=== PATIENT | male | born 1990 | race Caucasian/White ===

== ENCOUNTER 2016-07-01 09:17 | Emergency (ER) | payer SELFPAY ==
[~2016-07-01] VITALS: Ht 170.2 cm; Wt 77.1 kg
[2016-07-01 09:20] VITALS: BP 106/76
[2016-07-01] MEDS ORDERED: PENICILLIN G BENZATHINE LA 1,200,000 UNIT/2 ML DISP.SYRIN. IM ONE (09:45)
--- NOTE | 2016-07-01 09:47 | PHYS DOC ---
Past Medical History Past Medical History: No Pertinent History Past Surgical History: No Surgical History Alcohol Use: Rarely Drug Use: None, Methamphetamine Adult General Chief Complaint Chief Complaint: SORE THROAT HPI HPI Patient is a 25 year old male presents emergency department stating that he has had a sore throat with fever chills for the last 3 days. He states his been taken Tylenol and ibuprofen for the fever and chills. He states that he has white blisters on the back of his throat. He denies any nausea vomiting or cough. Review of Systems Review of Systems Constitutional: fever Eyes: Denies change in visual acuity, redness, or eye pain [] HENT: Denies nasal congestion C/o sore throat [] Respiratory: Denies cough or shortness of breath [] Cardiovascular: No additional information not addressed in HPI [] GI: Denies abdominal pain, nausea, vomiting, bloody stools or diarrhea [] : Denies dysuria or hematuria [] Musculoskeletal: Denies back pain or joint pain [] Integument: Denies rash or skin lesions [] Neurologic: Denies headache, focal weakness or sensory changes [] Current Medications Current Medications Current Medications Medications (Trade) Dose Ordered Sig/[place] Start Time Stop Time Status Last Admin Dose Admin Penicillin G Benzathine (Bicillin L-A) 1,200,000 unit 1X ONCE 07/01/16 09:45 07/01/16 09:46 Allergies Allergies Allergies Coded Allergies Type Severity Reaction Last Updated Verified No Known Drug Allergies 01/20/16 No Physical Exam Physical Exam Constitutional: Well developed, well nourished, no acute distress, non-toxic appearance. [] HENT: Normocephalic, atraumatic, bilateral external ears normal, oropharynx moist, no oral exudates, nose normal. Bilateral tympanic membranes appear to be normal. Throat with erythematous with white exudate noted uvula with no deviation. Patient with tenderness on upper gums. Eyes: PERRLA, EOMI, conjunctiva normal, no discharge. [] Neck: Normal range of motion, no tenderness, supple, no stridor. [] Cardiovascular:Heart rate regular rhythm, no murmur [] Lungs & Thorax: Bilateral breath sounds clear to auscultation [] Skin: Warm, dry, no erythema, no rash. [] Back: No tenderness Extremities: No tenderness, no cyanosis, no clubbing, ROM intact, no edema. [] Neurologic: Alert and oriented X 3, normal motor function, normal sensory function, no focal deficits noted. [] Psychologic: Affect normal, judgement normal, mood normal. [] Current Patient Data Vital Signs Vital Signs Date Time Temp Pulse Resp B/P Pulse Ox O2 Delivery O2 Flow Rate FiO2 07/01/16 09:20 98.9 91 18 100 Room Air 98.9 EKG EKG [] Radiology/Procedures Radiology/Procedures [] Course & Med Decision Making Course & Med Decision Making Pertinent Labs and Imaging studies reviewed. (See chart for details) Rapid strep was positive. Patient's requesting a Bicillin injection. He'll be discharged home in stable condition with recommendations for Tylenol and ibuprofen for fever chills generalized body aches and discomfort. Patient was also recommended to use off drops, throat lozenges and warm salt water park. Soothe the throat. Encourage plenty of fluids. Patient agrees with discharge instructions treatment regimens and follow-up recommendations. Since symptoms to return back to emergency department been provided. [] Dragon Disclaimer Dragon Disclaimer This electronic medical record was generated, in whole or in part, using a voice recognition dictation system. Departure Departure Impression: Primary Impression: Strep throat Disposition: 01 HOME, SELF-CARE Condition: STABLE Referrals: NO PCP (PCP) Patient Instructions: Strep Throat, [id number] Additional Instructions: Home to rest. Medications as prescribed such as Tylenol and ibuprofen. Cough drops, throat lozenges, Cepacol throat spray, warm salt water gargles may help soothe the throat. Encourage plenty of fluids. Follow-up to primary care physician in the next 3-5 days. Return back to emergency prior signs symptoms of become worse. MARÍA GUTIERREZ NP Jul 01, 2016 09:47
[2016-07-01 12:01] LABS: NEGATIVE OBC STREP NEG; POSITIVE OBC STREP POS
== END 2016-07-01 10:24 | disposition home or self-care (01) ==
LOC: ER 09:17
DX: J02.0 Streptococcal pharyngitis (principal); F15.10 Other stimulant abuse, uncomplicated
CPT/HCPCS: 87880; 96372; 99283; J0561